=== PATIENT | female | born 2000 | race American Indian/Alaskan Native ===

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

== ENCOUNTER 2020-03-11 07:17 | Emergency (ER) | payer SELFPAY ==
[2020-03-11 07:24] VITALS: BP 108/64
[2020-03-11 08:13] LABS: Bacteria,Urine 1+ /HPF (Negative); Bilirubin,Urine NEG (Negative); Blood,Urine NEG (Negative); Color,Urine Yellow (Yellow); Mucus,Urine FEW /HPF; Protein,Urine <15 mg/dL mg/dL (Negative)
[2020-03-11 08:33] LABS: HCG Qualitative,Urine Negative (Negative)
[2020-03-11] MEDS ORDERED: ONDANSETRON 4 MG ODT TAB PO ONE (08:51)
--- NOTE | 2020-03-11 08:51 | Emergency Department Report ---
Vomiting/Diarrhea - [facility] Chief Complaint: Nausea/Vomiting/Diarrhea Stated Complaint: VOMITTING Time Seen by Provider: 03/11/20 08:22 Duration: Today Severity: moderate Nausea/Vomiting Severity: Mild Diarrhea Severity: Moderate Pain Severity: Mild Symptoms: Yes Watery Diarrhea, Yes Recent Unusual Foods, No Bloody diarrhea, No Fever, No Able to Tolerate Fluids, No Recent Untreated Water, No Recent use of Antibiotics, No Family w/ Similar Symptoms, No Contacts w/ Similar Symptoms, No Rash, No Hematuria, No Recent URI Symptoms Other History: 20-year-old -[place] female presents to the emergency room complaining of nausea vomiting and diarrhea since this morning. Patient states that she thinks she may have gotten food poisoning as she had went out last night and ate. Patient denies any fever chills dysuria no possibility of being she does admit to vomiting nausea and diarrhea. She reports the nausea and vomiting is worse when she lies down. Patient reports she has lower abdominal pain cramping when she has to have a bowel movement. Patient denies any past medical history takes no medications on a daily basis and has no known drug allergies. ED Review of Systems ROS: Stated complaint: VOMITTING Other details as noted in HPI ED Past Medical Hx - Past Medical History Previous Medical History?: No Hx Hypertension: No Hx Diabetes: No Hx Deep Vein Thrombosis: No Hx Renal Disease: No Hx Sickle Cell Disease: No Hx Seizures: No Hx Asthma: No Hx HIV: No - Surgical History Past Surgical History?: No - Social History Smoking Status: Never Smoker Substance Use Type: None - Medications Home Medications: Home Medications Medication Instructions Recorded Confirmed Last Taken Type Ondansetron [Zofran ODT TAB] 4 mg PO Q8HR PRN #12 tab.rapdis 03/11/20 Unknown Rx Vomiting Diarrhea Exam - Exam General: Vital signs noted. No distress. Alert and acting appropriately. HEENT: Yes Moist Mucous Membranes, No Pharyngeal Erythema, No Pharyngeal Exudates, No Rhinorrhea, No Conjuctival Injection, No Frontal Tenderness, No Maxillary Tenderness Neck: No Adenopathy, No Rigidity Lungs: Yes Clear Lung Sounds, Yes Good Air Exchange, No Wheezes, No Stridor, No Cough, No Nasal Flaring, No Retractions, No Use of Accessory Muscles Heart exam: Regular: Yes, Murmur: No, Tachycardia: No Abdomen: Tenderness: No, Peritoneal Signs: No, Distention: No, Hyperactive Bowel sounds: No Skin exam: Rash: No, Edema: No, Normal turgor: Yes Neurologic: Alert and oriented, no deficits. Musculoskeletal: Unremarkable. ED Course Vital Signs 03/11/20 07:23 Temperature 98.9 F Pulse Rate 83 Respiratory 18 Rate Blood Pressure 108/64 O2 Sat by Pulse 100 Oximetry ED Medical Decision Making - Medical Decision Making 20-year-old -[place] female presents to the emergency room complaining of nausea vomiting and diarrhea since this morning. Patient states that she thinks she may have gotten food poisoning as she had went out last night and ate. Patient denies any fever chills dysuria no possibility of being she does admit to vomiting nausea and diarrhea. She reports the nausea and vomiting is worse when she lies down. Patient reports she has lower abdominal pain cramping when she has to have a bowel movement. Patient denies any past medical history takes no medications on a daily basis and has no known drug allergies. Patient will be given Zofran 4 mg p.o. and Imodium right ear 4 mg p.o. Patient be discharged home instructed to increase her fluid intake advance her diet as tolerated try taking a brat diet. Critical care attestation.: If time is entered above; I have spent that time in minutes in the direct care of this critically ill patient, excluding procedure time. ED Disposition Clinical Impression: Gastroenteritis Disposition: DC-01 TO HOME OR SELFCARE Is pt being admited?: No Does the pt Need Aspirin: No Condition: Stable Instructions: Food Poisoning (ED), Gastroenteritis (ED) Additional Instructions: Try taking [id number] Imodium right ear 2 mg on your next loose stool maximum of 8 mg in 24 hours. Take Zofran as needed for nausea and vomiting. Increase your fluid intake advance your diet as tolerated. Try following a bland diet consisting of bread rice applesauce and toast. Prescriptions: Ondansetron [Zofran ODT TAB] 4 mg PO Q8HR PRN #12 tab.rapdis PRN Reason: Nausea Referrals: PRIMARY CARE,MD [Primary Care Provider] - 3-5 Days Forms: Work/School Release Form(ED)
[2020-03-11] MEDS ORDERED: LOPERAMIDE 2 MG/10 ML ORAL LIQD PO ONE (08:52)
[2020-03-11] MEDS ORDERED: LOPERAMIDE 2 MG CAP PO ONE (09:30)
== END 2020-03-11 09:20 | disposition home or self-care (01) ==
LOC: ED 07:17
DX: K52.9 Noninfective gastroenteritis and colitis, unspecified (principal); Z79.899 Other long term (current) drug therapy
CPT/HCPCS: 81001; 81025; 99283; Q0162

== ENCOUNTER 2021-04-26 20:55 | Emergency (ER) | payer MEDICAID ==
[2021-04-26 22:04] LABS: HCG Qualitative,Urine Negative (Negative)
[2021-04-26 22:12] LABS: Bilirubin,Urine NEG (Negative); Blood,Urine SM (Negative); Color,Urine Amber (Yellow); Mucus,Urine 3+ /HPF
[2021-04-27] MEDS ORDERED: ONDANSETRON 4 MG/2 ML INJ IV ONE (00:23)
[2021-04-27] MEDS ORDERED: SODIUM CHLORIDE 0.9% 1000 ML 1,000 ML IV ONE (00:23)
--- NOTE | 2021-04-27 00:26 | Emergency Department Report ---
ED General Adult HPI - General Chief complaint: Abdominal Pain Stated complaint: STOMACH PAIN/VOMITING Time Seen by Provider: 04/27/21 00:00 Source: patient Mode of arrival: Ambulatory Limitations: No Limitations - History of Present Illness Initial comments: 21-year-old female patient presents to the emergency department with complaints of abdominal pain, nausea, and vomiting for 3 days. Patient states the pain in her abdomen is worse with walking. Took BC powder today with limited relief. No known sick contacts. No current steroid or antibiotic use. No recent travel. No history of prior abdominal surgeries. Denies fever, chills, diarrhea, constipation, vaginal bleeding, vaginal discharge. Denies all other complaints at this time. - Related Data Previous Rx's Medication Instructions Recorded Last Taken Type Dicyclomine [Bentyl] 20 mg PO QID #20 bottle 04/27/21 Unknown Rx Metoclopramide [Reglan] 10 mg PO TID #20 tab 04/27/21 Unknown Rx levoFLOXacin [Levaquin TAB] 500 mg PO QDAY 7 Days tablet 04/27/21 Unknown Rx metroNIDAZOLE [Flagyl] 500 mg PO Q12HR 7 Days tab 04/27/21 Unknown Rx Allergies Allergy/AdvReac Type Severity Reaction Status Date / Time No Known Allergies Allergy Unverified 12/04/15 13:06 ED Review of Systems ROS: Stated complaint: STOMACH PAIN/VOMITING Other details as noted in HPI Other: GENERAL: Negative for fever, chills, weight change, anorexia, fatigue. ENT: Negative for ear pain, difficulty hearing, sore throat, nasal congestion, epistaxis. CARDIOVASCULAR: Negative for chest pain, palpitations, lower extremity swelling. PULMONARY: Negative for cough, dyspnea, wheezing, orthopnea, cyanosis. GASTROINTESTINAL: Positive for abdominal pain, nausea, vomiting. MUSCULOSKELETAL: Negative for joint pain, joint swelling, myalgias, back pain, neck pain. NEUROLOGICAL: Negative for headache, seizure, syncope, paresthesias, weakness. INTEGUMENTARY: Negative for erythema, rash, diaphoresis, laceration, ecchymosis. HEMATOLOGICAL: Negative for hemoptysis, hematemesis, hematochezia, hematuria. PSYCHIATRIC: Negative for hallucinations, suicidal ideation, homicidal ideation, anxiety, depression. ED Past Medical Hx - Past Medical History Previous Medical History?: No Hx Hypertension: No Hx Diabetes: No Hx Deep Vein Thrombosis: No Hx Renal Disease: No Hx Sickle Cell Disease: No Hx Seizures: No Hx Asthma: No Hx HIV: No - Surgical History Past Surgical History?: No - Social History Smoking Status: Never Smoker Substance Use Type: None - Medications Home Medications: Home Medications Medication Instructions Recorded Confirmed Last Taken Type Dicyclomine [Bentyl] 20 mg PO QID #20 bottle 04/27/21 Unknown Rx Metoclopramide [Reglan] 10 mg PO TID #20 tab 04/27/21 Unknown Rx levoFLOXacin [Levaquin TAB] 500 mg PO QDAY 7 Days tablet 04/27/21 Unknown Rx metroNIDAZOLE [Flagyl] 500 mg PO Q12HR 7 Days tab 04/27/21 Unknown Rx ED Physical Exam - General Limitations: No Limitations - Other Other exam information: General: Awake and alert. No acute distress. Head: Atraumatic, normocephalic. Eyes: EOMI. Pupils are equal and round. Normal sclera and conjunctiva. ENT: Oral mucosa is moist. Normal pharyngeal exam. Neck: Supple. No lymphadenopathy. Pulmonary: No respiratory distress. Clear to auscultation bilaterally. Cardiac: Regular rate and rhythm. Pulses are palpable and equal bilaterally. No lower extremity cyanosis or edema. Skin: Warm and dry. No rashes. Abdomen: Soft, non-protuberant. Diffuse periumbilical and lower abdominal tenderness without guarding, rigidity, or rebound. Bowel sounds are normal. No organomegaly or masses noted. Back: Normal alignment. No CVA tenderness. Extremities: Symmetrical. Full range of motion intact. Neurological: Alert and oriented, appropriately interactive, no focal deficits. Psych: Cooperative. Appropriate mood and affect. Speech is evenly metered. Thoughts are logically construed. ED Course Vital Signs 04/26/21 04/27/21 04/27/21 21:25 03:28 03:58 Temperature 98.5 F Pulse Rate 92 H Respiratory 16 16 16 Rate Blood Pressure 106/69 O2 Sat by Pulse 97 Oximetry ED Medical Decision Making - Lab Data Result diagrams: 04/27/21 00:54 04/27/21 00:54 - EKG Data 04/27/21 03:28 EKG shows sinus tachycardia with a ventricular rate of 101 bpm. Normal axis. Normal MO interval. Normal QT interval. Good R wave progression. Occasional premature atrial complex. No ST segment changes. Over read by attending emergency physician, who agrees with this interpretation. - Medical Decision Making Differential diagnosis including but not limited to: appendicitis, cholecystitis, pyelonephritis, pancreatitis, urinary tract infection, 03:07: Labs show significant leukocytosis with white blood cell count of 24,000. Urinalysis suggestive of urinary tract infection. CT scan of the abdomen/pelvis ordered for further evaluation; however, patient refused the CT because "now her chest hurts when she raises her arms." EKG and CXR ordered as well as pain medication. Emphasized importance of obtaining further imaging studies in order to properly diagnose the patient. 04:42: On reevaluation, patient is stable. Earlier chest pain resolved. EKG w ithout acute injury pattern. Chest x-ray is negative. Patient was able to complete the CT scan on second attempt. CT of the abdomen/pelvis shows scattered, nondilated fluid-filled small bowel with mural thickening of the small bowel and colon, most consistent with enterocolitis. Findings may also be seen with inflammatory bowel disease, particularly Crohn's disease. Infectious enterocolitis may also have a similar appearance, per radiologist. 05:11: Patient states her symptoms have improved. Repeat abdominal exam is benign. No further vomiting in the emergency department. Tolerating oral intake without difficulty. Lactic acid is within normal limits. No CVA tenderness or radiographic findings to suggest pyelonephritis. Patient has no known history of inflammatory bowel disease and no known family history of Crohn's disease or ulcerative colitis. Patient is an appropriate candidate for outpatient management. She will be given IV Zosyn and Flagyl in the emergency department and discharged home with oral Levaquin and Flagyl for possible bacterial intestinal infection, in light of patient's leukocytosis. She has been referred to retail worker for close outpatient follow-up. Patient expressed understanding and is agreeable to plan of care. Disease transmission precautions discussed. Dietary modifications discussed. Strict return precautions provided. Repeat exam is unremarkable and benign. History, exam, diagnostic testing, and current condition do not suggest worrisome pathology to warrant further testing, continued ED treatment, admission, or surgical evaluation at this point. Given the low probability of a significant medical illness, it would be more likely to result in harm than benefit to perform further testing at this stage. Discussed findings, presumptive diagnosis, need for follow-up and specific signs/symptoms that should prompt immediate return to the emergency department. Instructions were explained in detail to the patient in addition to giving written discharge information. Patient expressed understanding and was given the opportunity to ask questions, all of which were satisfactorily answered prior to discharge home. Case discussed with Dr. Aparicio, attending emergency physician, who agrees with diagnostic work-up/plan of care. Critical care attestation.: If time is entered above; I have spent that time in minutes in the direct care of this critically ill patient, excluding procedure time. ED Disposition Clinical Impression: Enterocolitis Urinary tract infection Qualifiers: Urinary tract infection type: acute cystitis Hematuria presence: without hematuria Qualified Code(s): N30.00 - Acute cystitis without hematuria Disposition: TO HOME OR SELFCARE Is pt being admited?: No Does the pt Need Aspirin: No Condition: Stable Instructions: Urinary Tract Infection, Adult, Colitis, Abdominal Pain (ED) Additional Instructions: Take Tylenol every 4 hours as needed for pain. Take Reglan as directed for nausea. Take Bentyl as directed for intestinal discomfort. Take Levaquin and Flagyl with food as directed. Do not consume any alcohol while taking Flagyl Increase your dietary intake of probiotic rich foods while taking these medications. Rest. Drink plenty of fluids. Wash hands frequently to prevent disease transmission. Do not share food or drinks with others. Gradually advance diet slowly as tolerated. Follow-up with primary care provider and retail worker this week. Call tomorrow to schedule an appointment. See referral information below. Bring a copy of today's results with you to your appointment. Return to the emergency department immediately for new or worsening symptoms. Prescriptions: Dicyclomine [Bentyl] 20 mg PO QID #20 bottle metroNIDAZOLE [Flagyl] 500 mg PO Q12HR 7 Days tab levoFLOXacin [Levaquin TAB] 500 mg PO QDAY 7 Days tablet Metoclopramide [Reglan] 10 mg PO TID #20 tab Referrals: BORIS FLOWERS MD [Staff Physician] - 3-5 Days [facility] [Provider Group] - 3-5 Days [facility] [Provider Group] - 3-5 Days Forms: Work/School Release Form(ED) Time of Disposition: 05:04
[2021-04-27 01:11] LABS: Hematocrit 37.8 % (30.3-42.9); Hemoglobin 13.2 gm/dl (10.1-14.3); Mean Corpuscular HGB Conc 35 % (30-34); Mean Corpuscular Volume 89 fl (79-97); Platelet Count 275 K/mm3 (140-440); Red Blood Count 4.24 M/mm3 (3.65-5.03); Red Cell Distribution Width 13.4 % (13.2-15.2)
[2021-04-27 01:33] LABS: Alanine Aminotransferase 11 units/L (7-56); Albumin 4.3 g/dL (3.9-5); BUN/Creatinine Ratio 30; Blood Urea Nitrogen 21 mg/dL (7-17); Calcium 8.8 mg/dL (8.4-10.2); Hemolysis Index 6
[2021-04-27] MEDS ORDERED: POTASSIUM CHLORIDE ER 20 MEQ TAB PO ONE (01:51)
[2021-04-27 02:03] LABS: Total Cells Counted 200
[2021-04-27 02:04] LABS: Anisocytosis 1+; Monocytes % (Manual) 2.5 % (0.0-7.3); Platelet Estimate Consistent w Auto
[2021-04-27] MEDS ORDERED: MORPHINE 4 MG/1 ML INJ IV ONE (03:06)
--- NOTE | 2021-04-27 04:08 | XRay Report ---
XR chest routine 2V INDICATION / CLINICAL INFORMATION: chest pain. COMPARISON: None FINDINGS: SUPPORT DEVICES: None. HEART /PULMONARY VASCULATURE: No significant abnormality. LUNGS / PLEURA: No significant pulmonary or pleural abnormality. No pneumothorax. ADDITIONAL FINDINGS: No significant additional findings. IMPRESSION: 1. No acute findings. Signer Name: Danny Disla MD Signed: 04/27/2021 4:03 AM Workstation Name: [id number]
--- NOTE | 2021-04-27 04:46 | Cat Scan Report ---
CT abdomen pelvis w con INDICATION / CLINICAL INFORMATION: diffuse lower abd tenderness/nausea/vomiting. TECHNIQUE: Axial CT images were obtained through the abdomen and pelvis after IV contrast. All CT sc ans at this location are performed using CT dose reduction for ALARA by means of automated exposure c ontrol. COMPARISON: None available. FINDINGS: LOWER CHEST: No significant abnormality LIVER: No significant abnormality GALLBLADDER/BILIARY TREE: No significant abnormality PANCREAS: No significant abnormality SPLEEN: No significant abnormality ADRENALS: No significant abnormality KIDNEYS / URETER: No significant abnormality URINARY BLADDER: No significant abnormality REPRODUCTIVE ORGANS: No significant abnormality STOMACH / BOWEL: Stomach is unremarkable. Scattered nondilated fluid-filled small bowel with areas of mural thickening. No evidence of bowel obstruction. There is also diffuse mural thickening of the co carlos manuel. Appendix is normal. LYMPH NODES: Shotty retroperitoneal lymph nodes are likely reactive. VASCULATURE: No significant abnormality. OTHER: No free air, free fluid, or focal fluid collection is identified. SKELETAL SYSTEM: No acute osseous findings. IMPRESSION: Scattered nondilated fluid-filled small bowel with mural thickening of the small bowel and colon, mos t consistent with enterocolitis. Findings may be seen with inflammatory bowel disease, particularly C rohn's disease. Infectious enterocolitis may have a similar appearance. Signer Name: Danny Disla MD Signed: 04/27/2021 4:42 AM Workstation Name: [id number]
[2021-04-27] MEDS ORDERED: PIPERACIL/TAZOBACTA 4.5/NS 100 4.5 GM/100 ML VIAL IV ONE (04:58)
[2021-04-27] MEDS ORDERED: metroNIDAZOLE/NS 500 MG/100 ML 500 MG/100 ML BAG IV ONE (04:58)
[2021-04-27 06:30] VITALS: BP 100/60
--- NOTE | 2021-04-30 09:38 | Electrocardiograph Report ---
[facility] Test Date: 2021-04-27 Test Time: 03:24:04 Pat Name: LORI CAMPBELL Department: Room: Gender: F [employer]: KIMBERLY : 2000 Requested By: MARRY ARROYO Order Number: [id number] Reading MD: Bc Keen Measurements Intervals [place] Rate: 101 P: 49 MO: 157 QRS: 58 QRSD: 85 T: 4 QT: 359 QTc: 460 Interpretive Statements Sinus rhythm Atrial premature complexes No previous ECG available for comparison Electronically Signed On 04-30-2021 9:38:10 EDT by Bc Keen
== END 2021-04-27 06:31 | disposition home or self-care (01) ==
LOC: ED 20:55
DX: K52.9 Noninfective gastroenteritis and colitis, unspecified (principal); N39.0 Urinary tract infection, site not specified
CPT/HCPCS: 36415; 71046; 74177; 80053; 81001; 81025; 82140; 83690; 83735; 85007; 85025; 87040; 87086; 96361; 96365; 96367; 96375; 99284; J2270; J2405; J2543; J7030; Q9967; 93005

== ENCOUNTER 2021-05-02 11:15 | Emergency (ER) | payer MEDICAID | END 2021-05-02 11:20 | disposition left against medical advice (07) | LOC: ED 11:15 | DX: R10.9 Unspecified abdominal pain (principal); Z53.21 Procedure and treatment not carried out due to patient leaving prior to being seen by health care provider ==